=== PATIENT | female | born 1960 | race Caucasian/White ===

== ENCOUNTER 2021-06-01 00:37 | Day surgery (SDC) | payer BC, SELFPAY ==
[2021-05-23 15:14] VITALS: BMI 33.0
[2021-06-01 07:56] VITALS: BP 186/86; PULSE 80; RESP 18; TEMP 36.2; O2SAT 100
[2021-06-01] MEDS: LACTATED RINGERS 1,000 ML 150 ML IV CONT (08:10)
--- NOTE | 2021-06-01 08:13 | WPDGICN ---
Assessment and Plan Assessment and plan (1) Family history of colon cancer in mother: Code(s): Z80.0 - Family history of malignant neoplasm of digestive organs Status: Acute Assessment and Plan: Patient's mother has had colon cancer. For this reason neoplasia screening colonoscopy is advised will be performed. Further recommendations will be given after endoscopy. GI Consult Note Consult date/time: 06/01/21 08:13 HPI: Nga Locke is a 60 year old female Presents for screening colonoscopy. Patient's current weight appetite and bowel movements are normal. She denies abdominal pain. She states that her mother had colon cancer. Patient presents for colonoscopy she has never had this performed previously. She denies abdominal pain has had no difficulties. With her bowel habits. Review of Systems Review of Systems: All systems reviewed & are unremarkable except as noted in HPI and below PMFSH Social History Social History Smoking status: Never smoker Alcohol intake: current Drinks per week: 1 Substance use type: does not use Living arrangements: with family Spiritual care concerns: No Meds Home Medications and Allergies Home Medications Medication Instructions Recorded Confirmed Type irbesartan 75 mg PO DAILY 05/23/21 06/01/21 History Allergies Allergy/AdvReac Type Severity Reaction Status Date / Time No Known Allergies Allergy Verified 06/01/21 07:54 Vital Signs Vital Signs - 24 hr 06/01/21 07:56 Temperature 97.2 F L Pulse Rate 80 Respiratory Rate 18 Blood Pressure 186/86 H Pulse Oximetry 100 Exam Narrative: Physical exam reveals patient be alert. Vital signs stable. HEENT exam is unremarkable. Patient is anicteric. Lungs are clear to auscultation and percussion. Heart is without murmur murmur or extra sounds. Abdominal exam bowel sounds are present soft nontender with no hepatosplenomegaly. Digital external rectal exam is normal.
--- NOTE | 2021-06-01 08:26 | P.PNAN_ITS ---
Anes - Initial Pre Proc Eval Procedure: Operation Date: 06/01/21 08:30 Proposed Procedures p Screening Colonoscopy - Jose Nguyen MD Date/Time: 06/01/21 08:26 Surgeon: Jose Nguyen MD Pre Op Diagnosis: family hx of colon ca, neoplasm screening Patient Data Age: 60 Gender: F Height: 1.57 m Weight: 82 kg Last Vital Signs Temp 36.2 C L 06/01/21 07:56 Pulse 80 06/01/21 07:56 Resp 18 06/01/21 07:56 BP 186/86 H 06/01/21 07:56 Pulse Ox 100 06/01/21 07:56 Allergies Allergy/AdvReac Type Severity Reaction Status Date / Time No Known Allergies Allergy Verified 06/01/21 07:54 Home Medications Medication Instructions Recorded Confirmed Type irbesartan 75 mg PO DAILY 05/23/21 06/01/21 History Patient hx anesthesia problems: none Family hx anesthesia problems: none Results Review: All pre-operative results and documents have been reviewed as part of the pre-operative evaluation. [facility] Past Medical History Medical History (Updated 06/01/21 @ 08:26 by Facundo Jackson MD) HTN (hypertension) Obesity Social History Social History Smoking status: Never smoker Alcohol intake: current Drinks per week: 1 Substance use type: does not use Living arrangements: with family Spiritual care concerns: No Anes - Eval Final PreProcedure Day of Procedure 06/01/21 08:26 Patient weight: obese Heart: regular rate and rhythm Lungs: clear to auscultation Airway: Mallampati scale class II Neurological: alert and oriented Last oral intake: >/= 8 hours ASA classification: II Emergent: no Anesthetic plan: proceed Anesthesia type and monitoring: general GIVS and standard monitoring Results Review: All pre-operative results and documents have been reviewed as part of the pre-operative evaluation. Informed Consent: The patient's anesthetic plan and its attendant risks and benefits were discussed with the patient/family/POA. Questions were solicited and answers provided to the satisfaction of the patient/family/POA.
[2021-06-01 09:15] VITALS: BP 95/55; PULSE 71; RESP 21; O2SAT 99
[2021-06-01 09:25] VITALS: BP 111/65; PULSE 81; RESP 17; O2SAT 98
[2021-06-01 09:35] VITALS: BP 126/71; PULSE 64; RESP 16; O2SAT 100
== END 2021-06-01 09:45 | disposition home or self-care (01) ==
PROVIDERS: PCP Internal Medicine; Visit Provider Internal Medicine Gastroenterology
PROC: 0DJD8ZZ Inspection of Lower Intestinal Tract, Via Natural or Artificial Opening Endoscopic (ICD-10-PCS; CPT 45378; principal; 2021-06-01 08:30)
DX: Z12.11 Encounter for screening for malignant neoplasm of colon (principal); K64.8 Other hemorrhoids; Z80.0 Family history of malignant neoplasm of digestive organs; I10 Essential (primary) hypertension; E66.9 Obesity, unspecified; Z68.33 Body mass index [BMI] 33.0-33.9, adult
CPT/HCPCS: 45378; J2704; J7120

== ENCOUNTER 2022-05-04 15:10 | Outpatient (CLI) | payer BC, SELFPAY ==
--- NOTE | ~2022-05-04 | XR_ITS ---
XR chest 2V 05/04/2022 15:44 Indication: Cough Procedure: PA and lateral views of the chest Comparison: No prior studies for comparison. Findings: Heart size normal. There is bibasilar atelectasis. No focal pneumonia, pleural effusion, ed elisabet or pneumothorax. No acute osseous abnormality. Impression: 1: Bibasilar atelectasis. Reviewed, dictated and finalized at location A. [employer] Impression: 1: Bibasilar atelectasis.
[2022-05-04 15:27] LABS: Basophils Absolute Auto 0.09 K/mm3 (0.00-0.10); Basophils Percent Auto 1.2 % (0.0-1.0); Eosinophils Absolute Auto 0.34 K/mm3 (0.02-0.50); Eosinophils Percent Auto 4.4 % (1.0-6.0); Hematocrit 42.8 % (35.0-49.0); Hemoglobin 13.8 g/dL (12.0-15.0); Immature Granulocyte Absolute 0.04 K/mm3 (0.00-0.00); Immature Granulocyte Percent A 0.5 % (0.0-0.0); Lymphocytes Absolute Auto 2.46 K/mm3 (1.10-4.50); Lymphocytes Percent Auto 31.8 % (18.0-42.0); Mean Corpuscular HGB Conc 32.2 g/dL (32.0-36.0); Mean Corpuscular Hemoglobin 27.9 pg (27.0-31.0); Mean Corpuscular Volume 86.6 fL (78.0-102.0); Mean Platelet Volume 9.7 fl (9.2-11.8); Monocytes Absolute Auto 0.62 K/mm3 (0.10-0.90); Neutrophils Absolute Auto 4.2 K/mm3 (1.7-7.2); Neutrophils Percent Auto 54.1 % (50.0-70.0); Platelet Count Result 331 K/mm3 (150-420); Red Blood Count 4.94 M/mm3 (4.20-5.40); Red Cell Distribution Width 12.3 % (11.6-14.4); White Blood Count 7.7 K/mm3 (4.8-10.8)
[2022-05-04 15:49] LABS: Alanine Aminotransferase 65 U/L (14-59); Albumin Level 4.1 g/dL (3.4-5.0); Alkaline Phosphatase 68 U/L (46-116); Anion Gap 8 mmol/L (8-16); Aspartate Amino Transferase 41 U/L (15-37); Bilirubin,Total 0.4 mg/dL (0.00-1.00); Blood Urea Nitrogen 14 mg/dL (7-18); CRP 2.1 mg/dL (0.0-0.9); Calcium 9.1 mg/dL (8.5-10.1); Carbon Dioxide 33 mmol/L (21-32); Chloride 98 mmol/L (98-108); Estimated Glomerular Filt Rate > 60; Glucose 105 mg/dL (70-99); Osmolality Calculated 288 mOsm/kg (285-295); Potassium 3.3 mmol/L (3.5-5.1); Sodium 139 mmol/L (136-145)
[2022-05-12 04:17] LABS: Hepatitis A Antibody IgM Nonreactive; Hepatitis B Core Antibody Nonreactive (Nonreactive); Hepatitis B Surface Antigen Nonreactive (Nonreactive); Hepatitis C Signal to Cutoff 0.02 ratio (<1.00); Hepatitis C Virus Antibody Nonreactive (Nonreactive)
== END 2022-05-04 15:11 | disposition home or self-care (01) ==
LOC: CHSLAB 15:12
PROVIDERS: PCP Internal Medicine; Visit Provider Internal Medicine
DX: J18.9 Pneumonia, unspecified organism (principal); J98.11 Atelectasis
CPT/HCPCS: 36415; 71046; 80053; 80074; 85025; 86140; 86803